=== PATIENT | female | born 1980 | race Caucasian/White ===

== ENCOUNTER 2017-04-03 19:43 | Emergency (ER) | payer SELFPAY ==
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
[~2017-04-03 19:43] MED LIST: ALBUTEROL17 G1 IH; AMOXICILLIN PO; BENZONATATE PO; DICLOFENAC PO; FLEXERIL PO; FLEXERIL10 MG PO; IBUPROFEN PO; IBUPROFEN800 MG PO; KEFLEX500 MG PO; LORTAB 5/500 TA1 TA1 PO; LORTAB 7.5-5001 TAB PO; NO MEDICATIONS; PERIDEX480 ML PO; PHENERGAN25 M1 PO; PROMETHAZINE-D240 ML PO; TESSALON200 MG PO; VICODIN 5/1 TAB 5/50 PO; VICODIN PO; ZITHROMAX1 G/PKT PO
[2017-04-03] MEDS ORDERED: ATIVAN (20:02)
[2017-04-03] MEDS ORDERED: LIPITOR (20:03)
[2017-04-03] MEDS ORDERED: CLARITIN D (20:03)
[2017-04-03] MEDS ORDERED: FOLIC ACID (20:03)
[2017-04-03] MEDS ORDERED: METFORMIN (20:03)
[2017-04-03] MEDS ORDERED: FETZIMA1 EACH PO (20:04)
[2017-04-03] MEDS ORDERED: IBUPROFEN800 MG PO (20:04)
== END 2017-04-03 21:54 | disposition home or self-care (01) ==
LOC: SED 19:43
DX: S83.91XA Sprain of unspecified site of right knee, initial encounter (principal); Z79.899 Other long term (current) drug therapy; V44.6XXA Car passenger injured in collision with heavy transport vehicle or bus in traffic accident, initial encounter; Y92.488 Other paved roadways as the place of occurrence of the external cause
CPT/HCPCS: 29530; 73502; 73560; 99284